=== PATIENT | female | born 1955 | race Caucasian/White ===

== ENCOUNTER → 2020-11-05 | Outpatient (CLI) | payer OTHER ==
[~2020-11-05] MED LIST: ADVAIR 250-501 EACH INH; ALBUTEROL2.5 MG/31 INH; ASPIRIN EC81 M1 PO; COLACE100 MG PO; COZAAR 25 MG TA25 M2 PO; COZAAR100 MG PO; DILTIAZEM ER180 M2 PO; DOXYCYCLINE 10100 MG PO; FENOFIBRATE160 MG PO; HYDRALAZINE 2525 MG PO; HYDRALAZINE HC100 MG PO; HYDROCHLOROTHIA25 M1 PO; HYDROCODONE-AP1 EAC6 PO; HYZAAR 100-251 EACH PO; LEVAQUIN 250 M250 MG PO; LEXAPRO 10 MG T10 M1 PO; LEXAPRO 10 MG T10 MG; LIPITOR 20 MG T20 M1 PO; LOMOTIL TABLET1 EACH PO; MECLIZINE HCL25 M1 PO; MUCINEX TA600 MG/TA2 PO; NITROSTAT0.4 M1 SUBLING; PROTONIX 20 MG20 M1 PO; PROTONIX40 M2 PO; PROTONIX40 M3 PO; PROVENTIL HFA6.7 G1 INH; THERA M PLUS T1 EAC2 PO; TOPROL XL50 MG PO; TYLENOL325 MG PO; VICODIN 5-5001 EACH; VITAMIN AND MI1 EACH PO; VITAMIN B-125000 MCG PO; XANAX 0.5 MG0.5 M1 PO; ZOCOR40 MG; ZOFRAN4 MG PO
[2020-11-05 08:56] LABS: CALCIUM 9.4 mg/dL (8.5-10.1); CREATININE 1.1 mg/dL (0.6-1.3); POTASSIUM 4.2 mmol/L (3.5-5.1)
--- NOTE | 2020-11-05 13:41 | CARDNUC ---
[place] [address] CARDIAC NUCLEAR IMAGING REPORT Name: ALEXANDRE SEGURA Room: [facility]#: [id number] Admission: 11/05/20 Attend Phys: Loc Mandujano, Discharge: Date of : 51 Date of Service: 11/05/20 1340 Report #: [id number] THIS REPORT FOR: cc: Sylvia Reddy MD, Ghazal A. MD Biggs, F. Douglas MD [facility] ~ APPROVED REPORT Study performed: 11/05/2020 08:30:00 Patient Location: Out-Patient Stress Tech: Kari Rahman Stress Nurse: Delaney Richardson RN Ht: 4 ft 10 in Wt: 156 lbs BSA: 1.64 m2 HR: 67 bpm BP: 132/64 mmHg BMI: 32.60 Medical History Medications: [id number], ATORVASTATIN, DILTRAZEM, FENOFIBRATE, LOSARTAN, HCTZ, NTG Allergies: DOXYCYCLINE Cardiac Risk Factors: Age, Smoking, FHX of CAD, Hyperlipidemia, HTN, PVD Previous Cardiac Procedures: CABG, Myocardial infarction,CAD Resting Data Rest SPECT myocardial perfusion imaging was performed in supine position 30 minutes following the intravenous injection of 8.0 mCi of Tc-99m Sestamibi. Time of rest injection: 09:00 The images were gated to evaluate regional wall motion and calculate left ventricular ejection fraction. Administration Route: IV Administration Site: Right Arm Pharmacologic Stress Pharmacologic stress test was performed by injecting Regadenoson 0.4 mg IV push over 10-15 seconds immediately followed by the intravenous injection of 31.0 mCi of Tc-99m Sestamibi. Time of stress injection: 10:40 Administration Route: IV Administration Site: Right Arm Heart Rate at time of stress injection: [address] [place] [address] CARDIAC NUCLEAR IMAGING REPORT Name: ALEXANDRE SEGURA Room: [facility] ROLANDO Morel#: [id number] Admission: 11/05/20 Attend Phys: Loc Mandujano, Discharge: Date of : 51 Date of Service: 11/05/20 1340 Report #: [id number] Gated Stress SPECT was performed 40 minutes after stress injection. The images were gated to evaluate regional wall motion and calculate left ventricular ejection fraction. Stress Test Details Stress Test: Pharmacologic stress testing performed using 0.4 mg of regadenoson per 5 mL given IV over 10 seconds. HR Max Heart Rate (APMHR): 153 bpm Resting HR: 67 bpm Target HR (85% APMHR): 130 bpm Max HR Achieved: 104 bpm % of APMHR: 67 Recovery HR: 78 bpm HR response to stress: Normal HR response to stress BP Resting BP: 132/64 mmHg Max BP: 182/62 mmHg Recovery BP: 159/59 mmHg BP response to stress: Normal blood pressure response to stress. ECG Resting ECG: Sinus Rhythm, normal EKG Stress ECG: Sinus Rhythm, normal EKG ST Change: None Arrhythmia: None Recovery ECG: Sinus Rhythm, normal EKG Recovery ST Change: None Recovery Arrhythmia: None Clinical Stress Symptoms: Dyspnea, Nausea, cough Nurse Comments DYSPNEA, COUGHING, NAUSEA,SYMPTOMS RESOLVED 60ML IV CAFFEINE PUSHED Stress ECG Conclusion Clinical: Non-ischemic Normal hemodynamic response to pharmacologic stress. Non-diagnostic pharmacologic EKG stress due to failure to attain target HR. Study Quality Study: [place] [address] CARDIAC NUCLEAR IMAGING REPORT Name: ALEXANDRE SEGURA Room: [facility]#: [id number] Admission: 11/05/20 Attend Phys: Loc Mandujano, Discharge: Date of : 51 Date of Service: 11/05/20 1340 Report #: [id number] Artifact: No artifact No artifact Lung Uptake: Normal Study Data At rest, the left ventricular ejection fraction was 87%.. Post stress, the left ventricular ejection was 81%.. SSS: 1 SRS: 0 SDS: 1 TID = 0.95. Perfusion Normal left ventricular perfusion. There was normal left ventricular perfusion both at rest and post stress. Prone imaging was not obtained. Normal perfusion on both the stress and rest images. Images were reviewed using [employer]. Wall Motion Normal left ventricular wall motion. Nuclear Conclusion ECG Findings: non-diagnostic Clinical Findings: negative for ischemia Nuclear Findings: negative for ischemia Exercise Capacity: not assessed Left Ventricular Function: normal Risk Study: low Normal study. No scintigraphic evidence for myocardial ischemia or scar. <Conclusion> Clinical: Non-ischemic Normal hemodynamic response to pharmacologic stress. Non-diagnostic pharmacologic EKG stress due to failure to attain target HR. <ELECTRONICALLY SIGNED> By: oJe Padilla MD, FACC 11/05/20 1340 1340 1340 Joe Padilla MD, FACC /INF
== END ==
LOC: M.NUC 10-27 16:35
PROVIDERS: ATTEND Internal Medicine Cardiovascular Disease
DX: I25.10 Atherosclerotic heart disease of native coronary artery without angina pectoris (principal); R60.0 Localized edema

== ENCOUNTER → 2021-04-24 | Outpatient (CLI) | payer OTHER ==
[~2021-04-24] VITALS: Ht 152.4 cm; Wt 68.0 kg
[~2021-04-24] MED LIST changes: +DILTIAZEM ER120 MG PO
[2021-04-24 11:22] VITALS: BP 134/90
[2021-04-24 11:51] VITALS: BP 102/62
== END ==
LOC: M.INT 10:54
PROVIDERS: ATTEND Registered Nurse
DX: M79.622 Pain in left upper arm (principal); R20.0 Anesthesia of skin; K63.5 Polyp of colon; E78.5 Hyperlipidemia, unspecified; M81.0 Age-related osteoporosis without current pathological fracture; I10 Essential (primary) hypertension; Z72.0 Tobacco use

== ENCOUNTER → 2021-05-05 | Outpatient (CLI) | payer OTHER ==
[2021-05-05 11:03] LABS: CALCIUM 9.3 mg/dL (8.5-10.1); CREATININE 1.6 mg/dL (0.6-1.3); POTASSIUM 4.1 mmol/L (3.5-5.1)
== END ==
LOC: M.CT 09:51
PROVIDERS: ATTEND Radiology Diagnostic Radiology
DX: I65.22 Occlusion and stenosis of left carotid artery (principal); I70.8 Atherosclerosis of other arteries; K80.80 Other cholelithiasis without obstruction

== ENCOUNTER → 2021-06-01 | Outpatient (CLI) | payer OTHER ==
[~2021-06-01] VITALS: Ht 152.4 cm; Wt 68.6 kg
[2021-06-01 08:35] VITALS: BP 137/44
[2021-06-01 08:35] LABS: HEMATOCRIT 43.9 % (37.0-47.0); HEMOGLOBIN 14.9 gm/dL (12.0-15.0); MCH 28.4 pg (26.0-34.0); MCV 83.6 fL (80.0-100.0); MPV 7.5 fl. (7.2-11.1); RBC 5.26 mil/uL (4.20-5.00); RDW-CV 14.1 % (10.5-14.5); WBC 9.8 thou/uL (4.0-11.0)
[2021-06-01 08:57] LABS: APTT 29.7 Seconds (25.0-31.3); INR 1.2; PROTIME 12.3 Seconds (9.20-11.50)
[2021-06-01 09:05] LABS: CALCIUM 9.4 mg/dL (8.5-10.1); CREATININE 1.2 mg/dL (0.6-1.3); POTASSIUM 3.9 mmol/L (3.5-5.1)
[2021-06-01 09:10] LABS: ALBUMIN 3.6 g/dL (3.4-5.0); TOTAL BILIRUBIN 0.6 mg/dL (<0.1-1.0); TOTAL PROTEIN 7.8 g/dL (6.4-8.2)
[2021-06-01 12:30] VITALS: BP 173/69
[2021-06-01 12:45] VITALS: BP 168/79
[2021-06-01 13:00] VITALS: BP 219/92
[2021-06-01 13:15] VITALS: BP 221/86
[2021-06-01 14:03] VITALS: BP 126/49
== END | disposition home or self-care (01) ==
LOC: M.INT 07:29
PROVIDERS: Nurse Practitioner Family; ATTEND Radiology Diagnostic Radiology
DX: I70.1 Atherosclerosis of renal artery (principal); I15.0 Renovascular hypertension; K55.1 Chronic vascular disorders of intestine; I77.1 Stricture of artery; I10 Essential (primary) hypertension; I25.10 Atherosclerotic heart disease of native coronary artery without angina pectoris; E78.5 Hyperlipidemia, unspecified; M81.0 Age-related osteoporosis without current pathological fracture; J44.9 Chronic obstructive pulmonary disease, unspecified; Z98.890 Other specified postprocedural states; Z79.899 Other long term (current) drug therapy; Z86.010 Personal history of colon polyps; Z95.1 Presence of aortocoronary bypass graft; Z88.8 Allergy status to other drugs, medicaments and biological substances